=== PATIENT | male | born 1980 | race Caucasian/White ===

== ENCOUNTER → 2021-05-22 08:43 | Outpatient (BNVA) | payer MEDICAID, SELFPAY | PROVIDERS: Visit Provider Urology | DX: R79.89 Other specified abnormal findings of blood chemistry (principal) | CPT/HCPCS: 81003; 84403 ==

== ENCOUNTER → 2021-08-23 08:26 | Outpatient (BNVA) | payer MEDICAID, SELFPAY | PROVIDERS: Visit Provider Urology | DX: R79.89 Other specified abnormal findings of blood chemistry (principal) | CPT/HCPCS: 81003; 84403 ==

== ENCOUNTER 2022-01-23 15:27 | Outpatient (CLI) | payer MEDICAID, SELFPAY ==
--- NOTE | 2022-01-23 16:25 | MR_ITS ---
WS: [id number] MRI LUMBAR SPINE NONCONTRAST TECHNIQUE: Sagittal T1, T2 and STIR imaging. Axial T1 and T2 imaging. CLINICAL INFORMATION: PAIN IN BACK, SOFT TISSUE MASS COMPARISON: None. FINDINGS: Mild lumbar curve. No acute compression. No high-grade central canal stenosis. L1-L2: Normal. L2-L3: Mild annular bulging. Eccentric disc bulging with mild bilateral foraminal narrowing. Mild fac et arthropathy. Contact of the exiting RIGHT L2 nerve root with a small RIGHT foraminal protrusion. L3-L4: Mild annular bulging. Impingement LEFT subarticular recess and traversing LEFT L4 nerve root. Moderate facet arthropathy. Mild LEFT foraminal narrowing.Mild central canal stenosis. L4-L5: Mild annular bulging with slight effacement of ventral thecal sac. Slight impingement traversi ng L5 nerve roots. Moderate facet arthropathy ligamentum flavum hypertrophy with mild synovitis and e anaya in the facets. Small amount of bone marrow edema in the adjacent L4 and L5 pedicles Mild LEFT gr eater than RIGHT foraminal narrowing. L5-S1: Mild facet arthropathy. Spinal canal and foramen are patent. Visualized pelvic bony structures: Normal. Paravertebral soft tissues: Normal. MR/MR lumbar spine wo con* [id number] IMPRESSION: 1. Mild lumbar curve. No acute compression. No high-grade central canal stenos is. 2. Disc bulging L3-L4 with mild central canal stenosis and slight impingement traversing LEFT L4 nerve root. Mild LEFT L3-L4 foraminal narrowing. 3. Annular bulging L4-L5 with impingement traversing L5 nerve roots bilaterall y. Mild LEFT greater than RIGHT foraminal narrowing at this level. 4. Small RIGHT foraminal protrusion L2-L3 slightly contacts the exiting RIGHT L2 nerve root. 5. Moderate facet arthropathy L4-L5 with a small amount of edema compatible wi th synovitis likely degenerative or inflammatory.
== END 2022-01-23 15:28 | disposition home or self-care (01) ==
LOC: RAD 15:27
PROVIDERS: PCP Family Medicine; Visit Provider Family Medicine
DX: M51.36 Other intervertebral disc degeneration, lumbar region (principal); M48.061 Spinal stenosis, lumbar region without neurogenic claudication; M51.26 Other intervertebral disc displacement, lumbar region; M47.816 Spondylosis without myelopathy or radiculopathy, lumbar region
CPT/HCPCS: 72148

== ENCOUNTER 2022-02-21 10:00 | Outpatient (CLI) | payer MEDICAID, SELFPAY | END 2022-02-21 10:01 | disposition home or self-care (01) | LOC: LAB 10:02 | PROVIDERS: PCP Family Medicine; Visit Provider Urology | DX: R79.89 Other specified abnormal findings of blood chemistry (principal) | CPT/HCPCS: 36415; 84403 ==

== ENCOUNTER 2022-07-11 09:49 | Day surgery (SDC) | payer MEDICAID, SELFPAY ==
[2022-07-10 09:10] VITALS: BMI 41.5
--- NOTE | 2022-07-11 08:31 | W.PM.OPSUD ---
Surgery/Procedure H&P Update DATE OF PROCEDURE: July 11, 2022 DATE H&P PERFORMED: 06/26/22 H&P UPDATE INFORMATION: I have reviewed H&P completed within last 30 days PLANNED PROCEDURE: Operation Date: 07/11/22 12:40 Proposed Procedures p right carpal tunnel release:[id number],G56.01(Right) - Arnold Gardiner MD
[2022-07-11 10:06] VITALS: BP 117/93; PULSE 75; RESP 18; TEMP 37.2; O2SAT 97
[2022-07-11] MEDS: sodium chloride 0.9% 1,000 ML 30 ML IV (10:37)
[2022-07-11] MEDS: ceFAZolin 2,000 MG in sodium chloride 0.9% (plus) 50 ML 100 MG IV (11:08)
--- NOTE | 2022-07-11 11:44 | P.OP_ITS ---
Operative Report Date of procedure: July 11, 2022 Pre-op diagnosis: Preop Diagnosis right carpal tunnel syndrome Post-op diagnosis: same Post-op diagnosis: Same Procedure done: Right carpal tunnel release Pathology: none sent Surgeon: Arnold Gardiner Anesthesia: Nerve Block ([facility] block) Estimated blood loss (mL): 2 Tourniquet time (min): 14 Findings: No masses or space-occupying lesions were seen within the carpal tunnel Condition: stable Disposition: PACU Procedure: Patient was taken to the operating room and anesthesia provided by the anesthesia service. She was prepped and draped with the arm exposed. A timeout was performed. A 3 cm long incision was made in line with the fourth ray from the distal edge of the carpal tunnel extending proximally. The subcutaneous fat and palmar fascia was divided with a scalpel blade. Under loupe magnification the ulnar neurovascular bundle was identified distally. A hemostat could be passed under the transverse carpal ligament allowing the distal 25% to be divided. A slotted guide was then passed beneath the transverse carpal ligament and the middle 50% divided. Blunt scissors were then passed over the guide freeing the proximal ligament. The tourniquet was deflated. Hemostasis provided with electrocautery. Wound edges were infiltrated with 10 cc of a half percent Marcaine solution. Skin edges were reapproximated with 3-0 Prolene. Sterile dressings were applied. The patient was taken to the recovery room in stable condition
[2022-07-11 11:47] VITALS: BP 135/75; PULSE 82; RESP 14; TEMP 36.1; O2SAT 97
[2022-07-11 11:50] VITALS: BP 154/80; PULSE 81; RESP 15; O2SAT 97
[2022-07-11 12:01] VITALS: BP 168/75; PULSE 77; RESP 16; TEMP 36.1; O2SAT 97
[2022-07-11 12:14] VITALS: BP 143/86; PULSE 76; RESP 18; O2SAT 97
--- NOTE | 2022-07-11 12:44 | P.ANESASSM_ITS ---
Pre-Anesthetic Assessment Height/Weight: Height 1.65 m Weight 113.398 kg Temp Pulse Resp BP Pulse Ox O2 Del Method 97.0 F L 76 18 143/86 97 07/11/22 12:01 07/11/22 12:14 07/11/22 12:14 07/11/22 12:14 07/11/22 12:14 07/11/22 12:14 Preop Diagnosis: Carpal tunnel syndrome Operation Date: 07/11/22 12:40 Proposed Procedures p right carpal tunnel release:[id number],G56.01(Right) - Arnold Gardiner MD Familial anesthetic complications: none Was Beta Ga taken within 24 hours: N/A Was Clonidine taken within 24 hours: N/A Last intake: Intake Last Liquid Date 07/10/22 Last Liquid Time 00:00 Last Solid Date 07/10/22 Last Solid Time 22:00 Social No alcohol and No tobacco Exam alert, oriented x 3, clear to auscultation bilaterally and regular rate & rhythm Airway Submandibular: within normal limits Cervical ROM: within normal limits Mallampati: Class II Dentition: full Metabolic Morbid Obesity Anesthetic Plan ASA status: 2 Anesthesia: Choice Medications/Allergies Home Medications Medication Instructions Recorded Confirmed Last Taken Type naproxen sodium 220 mg tablet 220 mg PO BID PRN Pain 02/21/22 07/11/22 07/09/22 History (Aleve) testosterone cypionate 200 mg/mL 140 mg IM Q2D 07/10/22 07/10/22 07/09/22 History intramuscular kit hydrocodone 5 mg-acetaminophen 325 1 tab PO Q4H #30 tabs 07/11/22 Unknown Rx mg tablet Allergies Allergy/AdvReac Type Severity Reaction Status Date / Time coconut Allergy UNKNOWN Verified 06/28/22 08:03 gluten Allergy Unknown Verified 06/28/22 08:03 [facility] Anesthesia Medical History Low testosterone Family History Father Cancer colon Mother , AT AGE 72 Cancer LUNG Social History Smoking and tobacco status: never smoked Alcohol intake: never Marital status: Current occupational status: unemployed Data Anesthesia Cardiac Studies: No Data to Display
--- NOTE | 2022-07-11 14:37 | ANE.PACU2 ---
Inpatient post-anesthesia follow up: Airway intact: Yes Vital signs: Temperature 97.0 F Pulse Rate 76 Respiratory Rate 18 Blood Pressure 143/86 Pulse Oximetry 97 Oxygen Delivery Me thod Room Air Oxygen Flow Rate Fraction of Inspir ed Oxygen Hydration adequate: Yes Nausea and vomiting: No Pain level: 2 Mental status: Baseline
== END 2022-07-11 12:28 | disposition home or self-care (01) ==
PROVIDERS: PCP Family Medicine; Visit Provider Orthopaedic Surgery
PROC: (CPT 64721; principal; 2022-07-11 12:30)
DX: G56.01 Carpal tunnel syndrome, right upper limb (principal); E66.01 Morbid (severe) obesity due to excess calories; Z68.41 Body mass index [BMI] 40.0-44.9, adult
CPT/HCPCS: 64721; J0690; J2250; J2704; J3010; J3490; J7030

== ENCOUNTER → 2022-10-09 15:38 | Outpatient (BNVA) | payer MEDICAID, SELFPAY | PROVIDERS: PCP Family Medicine; Visit Provider Urology | DX: R79.89 Other specified abnormal findings of blood chemistry (principal) | CPT/HCPCS: 84403 ==

== ENCOUNTER → 2022-10-10 10:23 | Outpatient (BNVA) | payer MEDICAID, SELFPAY | PROVIDERS: PCP Family Medicine; Visit Provider Urology | DX: R79.89 Other specified abnormal findings of blood chemistry (principal) | CPT/HCPCS: 84403 ==

== ENCOUNTER 2025-04-13 08:18 | Day surgery (SDC) | payer MEDICAID, SELFPAY ==
[2025-04-13] VITALS (9 sets, daily range): BP systolic 100–131; BP diastolic 44–86; PULSE 63–78; RESP 16–18; TEMP 36.3–36.8; O2SAT 94–97; BMI 43.2
--- NOTE | 2025-04-13 08:25 | SUR.PREOP ---
0805 called patient arrival time 0800 and he stated he would be here in 10 minutes.
--- NOTE | 2025-04-13 09:32 | W.PM.OPSUD ---
Surgery/Procedure H&P Update DATE OF PROCEDURE: April 13, 2025 DATE H&P PERFORMED: 04/08/25 H&P UPDATE INFORMATION: I have reviewed H&P completed within last 30 days, I have examined patient prior to procedure and No changes to prior documentation PLANNED PROCEDURE: Operation Date: 04/13/25 11:25 Proposed Procedures p LEFT Carpal Tunnel Release(Left) - Jesu Evangelista MD
--- NOTE | 2025-04-13 10:18 | ANES.PREANE2 ---
Pre-Anesthetic Assessment Height/Weight: Height 5 ft 5 in Weight 260 lb Temp Pulse Resp BP Pulse Ox O2 Del Method 98.3 F 63 17 131/85 97 Room Air 04/13/25 08:43 04/13/25 08:43 04/13/25 08:43 04/13/25 08:43 04/13/25 08:43 04/13/25 08:43 Preop Diagnosis: Carpal tunnel syndrome Operation Date: 04/13/25 11:25 Proposed Procedures p LEFT Carpal Tunnel Release(Left) - Jesu Evangelista MD Was Beta Ga taken within 24 hours: N/A Was Clonidine taken within 24 hours: N/A Last intake: Intake Last Liquid Date 04/12/25 Last Liquid Time 22:00 Last Solid Date 04/12/25 Last Solid Time 22:00 Social No alcohol and No tobacco Exam alert, oriented x 3, clear to auscultation bilaterally and regular rate & rhythm Airway Submandibular: within normal limits Cervical ROM: within normal limits Mallampati: Class III Dentition: full Anesthetic Plan ASA status: 3 Anesthesia: MAC Other: No prior issues with anesthesia NPO since yesterday evening Denies any cardiac or pulmonary issues BMI 43 METs greater than 4 Plan for MAC anesthesia with local via surgeon Medications/Allergies Home Medications ?Medication ?Instructions ?Recorded ?Confirmed ?Last Taken ?Type naproxen sodium 220 mg tablet 220 mg PO BID PRN Pain 02/21/22 04/12/25 07/09/22 History (Aleve) testosterone cypionate 200 mg/mL 50 mg (0.25 mL) IM Q2D #10 mL 10/17/22 04/12/25 04/12/25 Rx intramuscular oil (Depo-Testosterone) anastrozole 1 mg tablet 1 mg PO DAILY 04/08/25 04/12/25 04/12/25 History Allergies Allergy/AdvReac Type Severity Reaction Status Date / Time coconut Allergy UNKNOWN Verified 04/08/25 09:40 gluten Allergy Unknown Verified 04/08/25 09:40 Current Medications Generic Name Dose Route Start Last Admin Trade Name Freq PRN Reason Stop Dose Admin Sodium Chloride 1,000 mls @ 30 mls/hr 04/13/25 08:30 04/13/25 08:57 Sodium Chloride 0.9% IV 04/14/25 08:29 30 mls/hr .Q24H VANE Administration PFSH Anesthesia Medical History Low testosterone Family History Father Cancer colon Mother , AT AGE 72 Cancer LUNG Social History Smoking and tobacco/nicotine status: never used tobacco/nicotine Alcohol intake: never Marital status: Current occupational status: unemployed
[2025-04-13] MEDS: ceFAZolin 2,000 mg SDV 2000 MG IVP (11:56)
[2025-04-13] MEDS: BUPivacaine 0.5% INJ 10 mL INJECTION (12:14)
--- NOTE | 2025-04-13 12:31 | PM.OP ---
Operative Report Date of procedure: April 13, 2025 Surgeon: Jesu Evangelista MD Procedure: Preoperative diagnosis: Left carpal tunnel syndrome Postoperative diagnosis: Same Procedure: Left carpal tunnel release Surgeon: Jesu Evangelista MD Anesthesia: IV sedation with local anesthetic EBL: None Indications: Femi is a 44-year-old white male who has previously had right carpal tunnel release by myself after being referred to the orthopedic clinics with positive nerve conduction test for bilateral carpal tunnel syndrome. He has recovered very well from the previous 1 is now back in for release of the left carpal tunnel. Patient is aware of all risk benefits treatment alternatives. He is also aware that he may have permanent damage to his nerve already and may have continued symptoms. He is also aware that may take 17 weeks for to completely resolve. Procedure: After obtaining her consent patient taken the operating room while still in his hospital [facility] had IV sedation administered. Once good anesthesia was achieved patient's left arm and hand were prepped and draped usual fashion. After surgical timeout Esmarch was used to exsanguinate the hand and wrist and used as a tourniquet on the mid forearm. He then had half percent Marcaine plain injected into the volar surface of his wrist over the carpal tunnel region for anesthetic effect. Once good anesthesia achieved longitudinal incision made from distal flexion crease of the wrist on the palmar surface along the ulnar border of the mid palmar crease. Incision was 1-1/2 to 2 cm in length. Sharp dissection was taken all the way down to transverse carpal ligament which was then divided with a #15 blade along the course of the skin incision. Once into the carpal tunnel region the remainder of the division of the transverse carpal ligament was done with Metzenbaum scissors and sharp and blunt fashion both proximal and distal. Once adequate decompression was achieved the wound was closed with 3-0 Prolene running horizontal mattress suture. Wounds are clean and dry dressed with Xeroform gauze sterile gauze dressing, Kerlix wrap, Timoteo wrap for compression. Patient was awakened transferred to cover room in stable condition
--- NOTE | 2025-04-13 13:30 | ANE.PACU2 ---
Inpatient post-anesthesia follow up: Airway intact: Yes Vital signs: Temperature 97.3 F Pulse Rate 72 Respiratory Rate 18 Blood Pressure 116/81 Pulse Oximetry 96 Oxygen Delivery Me thod Room Air Oxygen Flow Rate Fraction of Inspir ed Oxygen Hydration adequate: Yes Nausea and vomiting: No Pain level: 1 Mental status: Baseline
== END 2025-04-13 13:30 | disposition home or self-care (01) ==
PROVIDERS: PCP Family Medicine; Visit Provider Orthopaedic Surgery
PROC: (CPT 64721; principal; 2025-04-13 11:25)
DX: G56.02 Carpal tunnel syndrome, left upper limb (principal)
CPT/HCPCS: 64721; J0690; J2250; J2704; J3010; J3490; J7030